=== PATIENT | male | born 1980 | race Caucasian/White ===

== ENCOUNTER 2017-05-13 17:16 | Emergency (ER) | payer SELFPAY ==
[~2017-05-13] VITALS: Ht 175.2 cm; Wt 136.1 kg
[~2017-05-13 17:16] MED LIST: ADDERALL20 MG PO; AMOXICILLIN500 MG PO; AUGMENTIN 875 M1 TAB PO; BENADRYL25 MG PO; BIAXIN500 MG PO; CIPRODEX 0.3%-7.5 ML OT; CLARITIN10 MG PO; CLINDAMYCIN HC300 MG PO; COMBIVENT1 ARO IH; COMPAZINE10 MG PO; DAYPRO600 M1 PO; FLEXERIL10 MG PO; MEDROL DOSEPAK4 MG PO; MOTRIN800 MG PO; NAPROSYN500 MG PO; NKHM; NORCO 325 MG-51 TAB PO; PARAFON FORTE500 MG PO; PENICILLIN V P500 MG PO; PEPCID20 MG PO; PHENERGAN25 M1 PO; PREDNISONE10 MG PO; ROBAXIN750 MG PO; SODIUM CHLORIDE1 G1 PO; TESSALON PERLE100 M1 PO; TESSALON PERLE200 MG PO; TOBREX OPHTH S2.5 ML OPH; TRAMADOL HCL50 MG PO; ULTRAM50 MG PO; ZANTAC150 MG PO; ZITHROMAX Z PA250 MG PO; ZITHROMAX250 MG PO; ZOFRAN4 MG PO; Zofran4 MG PO
[2017-05-13 17:41] LABS: BASO # 0.1 10*3/uL (0.0-0.1); BASO % 0.8 % (0.0-1.0); EOS # 0.2 10*3/uL (0.0-0.4); EOS % 2.1 % (1.0-4.0); HEMATOCRIT 47.4 % (42.0-52.0); HEMOGLOBIN 16.1 g/dl (14.0-18.0); LYMPH # 3.4 10*3/uL (1.3-4.4); LYMPH % 33.1 % (27.0-41.0); MEAN CELL VOLUME 88.6 fl (80.0-94.0); MEAN CORPUSCULAR HGB 30.1 pg (27.0-31.0); MEAN PLATELET VOLUME 9.9 fl (9.6-12.3); MONO # 0.6 10*3/uL (0.1-1.0); MONO % 5.8 % (3.0-9.0); NEUT # 5.9 10*3/uL (2.3-7.9); NEUT % 57.9 % (47.0-73.0); PLATELET COUNT AUTOMATED 196 10*3/uL (130-400); RED BLOOD COUNT 5.35 10*6/uL (4.50-5.90); WHITE BLOOD COUNT 10.2 10*3/uL (4.8-10.8)
[2017-05-13 17:48] LABS: BILIRUBIN NEGATIVE (NEGATIVE); BLOOD NEGATIVE (NEGATIVE); CLARITY CLEAR (CLEAR); COLOR YELLOW (YELLOW); GLUCOSE 3+ (NEGATIVE); KETONE NEGATIVE (NEGATIVE); LEUKO ESTERASE NEGATIVE (NEGATIVE); NITRITE NEGATIVE (NEGATIVE); PH 5.5 (5.0-9.0); PROTEIN NEGATIVE (NEGATIVE); SPECIFIC GRAVITY <= 1.005 (1.005-1.030); UROBILINOGEN 0.2 E.U./dl (0.2-1.0)
[2017-05-13 17:55] LABS: BACTERIA TRACE; RBC 0-2 rbc/hpf (0-2); URINE REFLEX COMMENT NO (NO)
[2017-05-13 17:59] LABS: ALBUMIN 3.4 gm/dl (3.1-4.5); ALKALINE PHOSPHATASE 130 U/L (45-117); BILIRUBIN, TOTAL 0.4 mg/dl (0.2-1.0); BUN 11 mg/dl (7-24); C-REACTIVE PROTEIN 0.97 MG/DL (0-0.3); CARBON DIOXIDE 28 mmol/L (21-32); CHLORIDE 100 mmol/L (98-107); EST GLOM FILT AFRICAN AMERICAN > 60 ml/min; GLUCOSE 456 mg/dL (65-99); POTASSIUM 4.6 mmol/L (3.5-5.1); SGOT/AST 20 IU/L (3-35); SGPT/ALT 49 U/L (12-78); SODIUM 135 mmol/L (136-145); TOTAL PROTEIN 7.3 gm/dL (6.4-8.2)
[2017-05-13] MEDS ORDERED: CYCLOBENZAPRINE10 MG PO (22:51)
[2017-05-13] MEDS ORDERED: HYDROCODONE BIT1 T11 PO (22:51)
== END 2017-05-13 22:57 | disposition home or self-care (01) ==
LOC: ED 17:16
PROVIDERS: Physician Assistant
DX: M54.6 Pain in thoracic spine (principal); R73.02 Impaired glucose tolerance (oral); F17.200 Nicotine dependence, unspecified, uncomplicated

== ENCOUNTER → 2017-05-24 | Outpatient (CLI) | payer SELFPAY ==
[~2017-05-24] MED LIST changes: +CYCLOBENZAPRINE10 MG PO; +HYDROCODONE BIT1 T11 PO
== END | disposition home or self-care (01) ==
LOC: LAB 11:45
DX: F15.20 Other stimulant dependence, uncomplicated (principal)

== ENCOUNTER 2017-11-19 11:08 | Emergency (ER) | payer SELFPAY ==
[~2017-11-19] VITALS: Ht 175.2 cm; Wt 140.6 kg
[2017-11-19] MEDS ORDERED: METFORMIN500 MG PO (11:31)
[2017-11-19] MEDS ORDERED: ROBITUSSIN DM 105 ML PO (13:49)
[2017-11-19] MEDS ORDERED: CLARITIN10 MG PO (13:49)
[2017-11-19] MEDS ORDERED: FLONASE ALLERG9.9 ML NAS (13:49)
[2017-11-19] MEDS ORDERED: PREDNISONE10 MG PO (13:49)
[2017-11-19] MEDS ORDERED: PROAIR HFA8.5 GM INH (13:49)
== END 2017-11-19 14:33 | disposition home or self-care (01) ==
LOC: ED 11:08
DX: J20.9 Acute bronchitis, unspecified (principal); R03.0 Elevated blood-pressure reading, without diagnosis of hypertension; F17.200 Nicotine dependence, unspecified, uncomplicated

== ENCOUNTER 2019-05-20 15:14 | Inpatient (IN) | payer SELFPAY ==
[~2019-05-20] VITALS: Ht 175.2 cm; Wt 117.9 kg
--- NOTE | ~2019-05-20 | EKG ---
[place], [place] ELECTROCARDIOGRAM REPORT NAME: ROGELIO LOVELL UNIT #: [id number] ROOM: 520 DOCTOR: EPIPHMARIA ESTHER DRAFT REPORT BIRTHDATE: [birth year] [facility] Test Date: 2019-05-20 Test Time: 15:48:19 Pat Name: ROGELIO LOVELL Department: ED Room: 520 Gender: M Assistant Spa Manager: Brenda Rendon : 1980 Requested By: SARA MOSS DNP Order Number: [id number] Reading MD: Colin Payne MD Measurements Intervals [place] Rate: 98 P: 65 OK: 150 QRS: 34 QRSD: 84 T: 195 QT: 354 QTc: 453 Interpretive Statements Sinus rhythm Anterior infarct, age undetermined Abnormal T, consider ischemia, diffuse leads Slight anterior ST elevation, consider injury No prior EKG for comparison Electronically Signed On 05-21-2019 7:52:57 PDT by Colin Payne MD CM:EKGRPT:ELECTROCARDIOGRAM REPORT [id number] SARA MOSS DNP EPIPHANY DRAFT REPORT SARA MOSS DNP
[~2019-05-20 15:14] MED LIST changes: +AUGMENTIN 875875 MG PO; +FLONASE ALLERG9.9 ML NAS; +METFORMIN500 MG PO; +PROAIR HFA8.5 GM INH; +ROBITUSSIN DM 105 ML PO
[2019-05-20 15:16] VITALS: BP 162/94
[2019-05-20 16:00] LABS: BASO # 0.1 10*3/uL (0.0-0.1); EOS # 0.2 10*3/uL (0.0-0.4); EOS % 2.3 % (1.0-4.0); HEMATOCRIT 39.2 % (42.0-52.0); HEMOGLOBIN 13.6 g/dl (14.0-18.0); LYMPH # 3.5 10*3/uL (1.3-4.4); LYMPH % 32.9 % (27.0-41.0); MEAN CELL VOLUME 90.3 fl (80.0-94.0); MEAN CORPUSCULAR HGB 31.3 pg (27.0-31.0); MEAN CORPUSCULAR HGB CONC 34.7 g/dl (33.0-37.0); MEAN PLATELET VOLUME 10.1 fl (9.6-12.3); MONO # 0.9 10*3/uL (0.1-1.0); NEUT # 5.9 10*3/uL (2.3-7.9); NEUT % 55.6 % (47.0-73.0); PLATELET COUNT AUTOMATED 233 10*3/uL (130-400); RED BLOOD COUNT 4.34 10*6/uL (4.50-5.90); RED CELL DISTRI WIDTH 12.8 % (0-14.5); WHITE BLOOD COUNT 10.6 10*3/uL (4.8-10.8)
--- NOTE | 2019-05-20 16:05 | NUR ---
Patient sitting calmly at bedside. Patient denies any relief from his pain . Patient has no nausea. V BELT SKIVER aware.
[2019-05-20 16:18] LABS: ALBUMIN 3.6 gm/dl (3.1-4.5); ALKALINE PHOSPHATASE 80 U/L (45-117); BUN 21 mg/dl (7-24); CHLORIDE 103 mmol/L (98-107); CREATININE 1.01 mg/dL (0.70-1.30); LIPASE 224 U/L (73-393); POTASSIUM 3.9 mmol/L (3.5-5.1); SGOT/AST 25 IU/L (3-35); SGPT/ALT 40 U/L (12-78); SODIUM 136 mmol/L (136-145); TOTAL PROTEIN 7.1 gm/dL (6.4-8.2)
[2019-05-20 16:26] LABS: TROPONIN I < 0.015 ng/ml (<0.045)
[2019-05-20 16:34] LABS: ACT PARTIAL THROMBO TIME 26.2 SECONDS (20.0-32.1); INTERNATIONAL NORM RATIO 0.9 (2.0-3.5)
[2019-05-20 17:02] LABS: BILIRUBIN NEGATIVE (NEGATIVE); BLOOD NEGATIVE (NEGATIVE); CLARITY CLEAR (CLEAR); COLOR YELLOW (YELLOW); GLUCOSE 3+ (NEGATIVE); KETONE NEGATIVE (NEGATIVE); LEUKO ESTERASE NEGATIVE (NEGATIVE); NITRITE NEGATIVE (NEGATIVE); PH 5.5 (5.0-9.0); UROBILINOGEN 0.2 E.U./dl (0.2-1.0)
--- NOTE | 2019-05-20 17:03 | NUR ---
Patient reports relief from his pain. No other needs voiced at this time. Will continue to monitor.
[2019-05-20 17:21] LABS: WBC 0-2 wbc/hpf (0-5)
--- NOTE | 2019-05-20 18:50 | NUR ---
Time: 1849 A 39 year old MALE admitted to 5E under services of SELAM APTEL DO. Pt. arrived via from ER. Chief complaint: GI BLEED. ZENOBIA SILVA
--- NOTE | 2019-05-20 19:00 | NUR ---
PATIENT UPSET BECAUSE HE IS UNABLE TO EAT. SPOKE WITH DR LIM AND DR YARBROUGH. PATIENT IS TO REMAIN NPO FOR COLO TOMORROW. PATIENT IS UPSET BECAUSE HE IS UNABLE TO EAT. SPOKE WITH PATIENT AND FAMILY ABOUT COLONOSCOPY PROCEDURE AND PREP. PATIENT STATES HE DOES NOT WISH TO STAY. AMA PAPER SIGNED AND IV REMOVED FROM RIGHT AC.
--- NOTE | 2019-05-20 19:20 | NUR ---
Patient signed out AMA. Patient encouraged to stay and advised of possible consequences of premature discharge. Physician DR YARBROUGH and used car sales supervisor OLLIE notified. Patient instructed what to do regarding care post-departure from the hospital; emergency phone numbers provided. Patent was accompanied by FAMILY. ZENOBIA SILVA
== END 2019-05-20 19:20 | disposition left against medical advice (07) | DRG 379 ==
LOC: ED 15:14 → EDHOLD 17:32 → 5E 18:32
PROVIDERS: Nurse Practitioner Family; ADMIT Internal Medicine
DX: K92.2 Gastrointestinal hemorrhage, unspecified (principal); Z53.21 Procedure and treatment not carried out due to patient leaving prior to being seen by health care provider; Z83.3 Family history of diabetes mellitus; Z82.49 Family history of ischemic heart disease and other diseases of the circulatory system; Z82.5 Family history of asthma and other chronic lower respiratory diseases

== ENCOUNTER 2019-07-08 21:05 | Emergency (ER) | payer SELFPAY ==
[~2019-07-08] VITALS: Ht 175.2 cm; Wt 149.7 kg
[2019-07-08 22:22] LABS: BASO # 0.1 10*3/uL (0.0-0.1); BASO % 0.9 % (0.0-1.0); EOS # 0.2 10*3/uL (0.0-0.4); EOS % 1.8 % (1.0-4.0); HEMATOCRIT 49.7 % (42.0-52.0); LYMPH % 29.2 % (27.0-41.0); MEAN CELL VOLUME 91.2 fl (80.0-94.0); MEAN CORPUSCULAR HGB 31.2 pg (27.0-31.0); MEAN CORPUSCULAR HGB CONC 34.2 g/dl (33.0-37.0); MEAN PLATELET VOLUME 9.6 fl (9.6-12.3); MONO # 0.6 10*3/uL (0.1-1.0); MONO % 6.3 % (3.0-9.0); NEUT # 6.3 10*3/uL (2.3-7.9); NEUT % 61.6 % (47.0-73.0); PLATELET COUNT AUTOMATED 264 10*3/uL (130-400); RED BLOOD COUNT 5.45 10*6/uL (4.50-5.90); RED CELL DISTRI WIDTH 12.4 % (0-14.5); WHITE BLOOD COUNT 10.2 10*3/uL (4.8-10.8)
[2019-07-08 22:43] LABS: ALBUMIN 3.4 gm/dl (3.1-4.5); ALKALINE PHOSPHATASE 93 U/L (45-117); BUN 12 mg/dl (7-24); CHLORIDE 106 mmol/L (98-107); CREATININE 0.78 mg/dL (0.70-1.30); LIPASE 75 U/L (73-393); POTASSIUM 3.7 mmol/L (3.5-5.1); SGOT/AST 17 IU/L (3-35); SGPT/ALT 37 U/L (12-78); SODIUM 139 mmol/L (136-145); TOTAL PROTEIN 7.6 gm/dL (6.4-8.2)
[2019-07-09 00:19] LABS: BILIRUBIN NEGATIVE (NEGATIVE); BLOOD NEGATIVE (NEGATIVE); CLARITY CLEAR (CLEAR); COLOR YELLOW (YELLOW); GLUCOSE NEGATIVE (NEGATIVE); KETONE NEGATIVE (NEGATIVE); LEUKO ESTERASE NEGATIVE (NEGATIVE); NITRITE NEGATIVE (NEGATIVE); SPECIFIC GRAVITY <= 1.005 (1.005-1.030)
[2019-07-09 00:44] LABS: RBC 0-2 rbc/hpf (0-2); WBC 0-2 wbc/hpf (0-5)
== END 2019-07-09 01:41 | disposition home or self-care (01) ==
LOC: ED 21:05
PROVIDERS: Emergency Medicine
DX: K57.30 Diverticulosis of large intestine without perforation or abscess without bleeding (principal); B34.9 Viral infection, unspecified; E11.9 Type 2 diabetes mellitus without complications; F17.200 Nicotine dependence, unspecified, uncomplicated

== ENCOUNTER 2019-07-23 09:04 | Emergency (ER) | payer SELFPAY ==
[~2019-07-23] VITALS: Ht 175.2 cm; Wt 136.1 kg
[2019-07-23] MEDS ORDERED: AMOXICILLIN500 M2 PO (09:13)
[2019-07-23] MEDS ORDERED: Motrin,Rufen800 MG PO (09:13)
== END 2019-07-23 09:12 | disposition home or self-care (01) ==
LOC: ED 09:04
DX: K08.89 Other specified disorders of teeth and supporting structures (principal)

== ENCOUNTER → 2023-03-27 | Outpatient (CLI) | payer MEDICAID ==
[~2023-03-27] MED LIST changes: +AMOXICILLIN500 M2 PO; +Motrin,Rufen800 MG PO
[2023-03-27 11:01] LABS: BASO # 0.1 10*3/uL (0.0-0.1); BASO % 0.8 % (0.0-1.0); EOS # 0.2 10*3/uL (0.0-0.4); EOS % 2.3 % (1.0-4.0); LYMPH # 1.9 10*3/uL (1.3-4.4); LYMPH % 25.1 % (27.0-41.0); MEAN CELL VOLUME 88.9 fl (80.0-94.0); MEAN CORPUSCULAR HGB 27.7 pg (27.0-31.0); MEAN CORPUSCULAR HGB CONC 31.1 g/dl (33.0-37.0); MEAN PLATELET VOLUME 8.5 fl (9.6-12.3); MONO # 0.3 10*3/uL (0.1-1.0); MONO % 4.6 % (3.0-9.0); NEUT # 4.9 10*3/uL (2.3-7.9); NEUT % 66.9 % (47.0-73.0); PLATELET COUNT AUTOMATED 344 10*3/uL (130-400); RED BLOOD COUNT 5.06 10*6/uL (4.50-5.90); RED CELL DISTRI WIDTH 14.2 % (0-14.5); WHITE BLOOD COUNT 7.4 10*3/uL (4.8-10.8)
[2023-03-27 11:43] LABS: BUN 10 mg/dl (9-23); CHLORIDE 109 mmol/L (98-107); CHOLESTEROL 171 mg/dL (<200); LDL CHOLESTEROL 112 mg/dL (9-159); POTASSIUM 4.8 mmol/L (3.4-5.1); TRIGLYCERIDES 57 mg/dl (<150)
== END | disposition home or self-care (01) ==
LOC: RESCLI 09:52
PROVIDERS: Internal Medicine; ATTEND Student in an Organized Health Care Education/Training Program
DX: Z13.9 Encounter for screening, unspecified (principal); I10 Essential (primary) hypertension; I73.9 Peripheral vascular disease, unspecified; E11.9 Type 2 diabetes mellitus without complications; E78.5 Hyperlipidemia, unspecified; Z82.49 Family history of ischemic heart disease and other diseases of the circulatory system; Z98.890 Other specified postprocedural states; Z79.899 Other long term (current) drug therapy

== ENCOUNTER → 2023-05-08 | Outpatient (CLI) | payer MEDICAID ==
[2023-05-08 09:03] LABS: BASO # 0.1 10*3/uL (0.0-0.1); BASO % 1.5 % (0.0-1.0); EOS # 0.5 10*3/uL (0.0-0.4); EOS % 6.8 % (1.0-4.0); HEMATOCRIT 44.6 % (42.0-52.0); LYMPH # 2.7 10*3/uL (1.3-4.4); LYMPH % 40.3 % (27.0-41.0); MEAN CELL VOLUME 90.7 fl (80.0-94.0); MEAN CORPUSCULAR HGB 28.9 pg (27.0-31.0); MEAN CORPUSCULAR HGB CONC 31.8 g/dl (33.0-37.0); MEAN PLATELET VOLUME 9.1 fl (9.6-12.3); MONO # 0.5 10*3/uL (0.1-1.0); NEUT # 2.9 10*3/uL (2.3-7.9); NEUT % 43.1 % (47.0-73.0); PLATELET COUNT AUTOMATED 237 10*3/uL (130-400); RED BLOOD COUNT 4.92 10*6/uL (4.50-5.90); RED CELL DISTRI WIDTH 15.2 % (0-14.5); WHITE BLOOD COUNT 6.8 10*3/uL (4.8-10.8)
[2023-05-08 09:47] LABS: ALKALINE PHOSPHATASE 92 U/L (46-116); BUN 11 mg/dl (9-23); CHLORIDE 107 mmol/L (98-107); CHOLESTEROL 160 mg/dL (<200); FREE T4 0.99 ng/dl (0.89-1.76); LDL CHOLESTEROL 88 mg/dL (9-159); POTASSIUM 4.3 mmol/L (3.4-5.1); SGPT/ALT 9 U/L (10-49); TOTAL PROTEIN 7.1 gm/dL (6.0-8.0); TRIGLYCERIDES 80 mg/dl (<150)
== END | disposition home or self-care (01) ==
LOC: LAB 08:33
PROVIDERS: ATTEND Internal Medicine
DX: I10 Essential (primary) hypertension (principal); R26.89 Other abnormalities of gait and mobility

== ENCOUNTER → 2023-05-09 | Outpatient (CLI) | payer MEDICAID | END | disposition home or self-care (01) | LOC: LAB 13:56 | PROVIDERS: ATTEND Internal Medicine | DX: I10 Essential (primary) hypertension (principal); R26.89 Other abnormalities of gait and mobility ==

== ENCOUNTER → 2023-06-14 | Outpatient (CLI) | payer MEDICAID | END | disposition home or self-care (01) | LOC: RAD 11:09 | PROVIDERS: ATTEND Internal Medicine | DX: M19.042 Primary osteoarthritis, left hand (principal); M24.542 Contracture, left hand; M79.89 Other specified soft tissue disorders; M86.141 Other acute osteomyelitis, right hand ==

== ENCOUNTER → 2023-07-03 | Day surgery (SDC) | payer MEDICAID ==
[2023-06-29 12:48] VITALS: BP 161/86
[2023-06-29 13:47] LABS: BUN 11 mg/dl (9-23); CHLORIDE 107 mmol/L (98-107); POTASSIUM 4.5 mmol/L (3.4-5.1)
[~2023-07-03] VITALS: Ht 175.2 cm; Wt 108.9 kg
[~2023-07-03] MED LIST changes: +LISINOPRIL20 MG PO
[2023-07-03 06:55] VITALS: BP 175/106
[2023-07-03 08:15] VITALS: BP 108/64
[2023-07-03 08:30] VITALS: BP 124/80
[2023-07-03 08:45] VITALS: BP 140/80
[2023-07-04 11:07] LABS: ACID FAST SPEC PROCESSING Tissue Grinding (.)
[2023-07-04 11:07] LABS: ACID FAST SPEC PROCESSING Tissue Grinding (.)
== END | disposition home or self-care (01) ==
LOC: SDC 06-29 13:15
PROVIDERS: ATTEND Orthopaedic Surgery
DX: M89.8X4 Other specified disorders of bone, hand (principal); M12.842 Other specific arthropathies, not elsewhere classified, left hand; M79.642 Pain in left hand; M79.645 Pain in left finger(s)

== ENCOUNTER → 2023-09-24 | Outpatient (CLI) | payer MEDICAID | END | disposition home or self-care (01) | LOC: MRI 08-21 13:00 | PROVIDERS: ATTEND Internal Medicine | DX: R90.82 White matter disease, unspecified (principal); J32.1 Chronic frontal sinusitis; R26.89 Other abnormalities of gait and mobility; J32.9 Chronic sinusitis, unspecified; J32.2 Chronic ethmoidal sinusitis ==

== ENCOUNTER → 2023-10-04 | Outpatient (CLI) | payer MEDICAID | END | disposition home or self-care (01) | LOC: LAB 12:28 | PROVIDERS: ATTEND Internal Medicine | DX: R26.89 Other abnormalities of gait and mobility (principal) ==

== ENCOUNTER → 2025-03-11 | Outpatient (CLI) | payer OTHER ==
[2025-03-11 10:14] LABS: BUN 16 mg/dl (9-23); CHLORIDE 102 mmol/L (98-107); POTASSIUM 4.5 mmol/L (3.4-5.1)
== END | disposition home or self-care (01) ==
LOC: LAB 09:27
PROVIDERS: ATTEND Internal Medicine
DX: E11.42 Type 2 diabetes mellitus with diabetic polyneuropathy (principal)